=== PATIENT | female | born 1990 | race Caucasian/White ===

== ENCOUNTER 2020-02-21 12:43 | Inpatient (IN) | payer OTHER, SELFPAY ==
[2020-02-21] VITALS (22 sets, daily range): BP systolic 103–128; BP diastolic 49–71; PULSE 58–91; RESP 14–18; TEMP 36.1–36.9; O2SAT 99–100; BMI 35.3
[2020-02-21] MEDS: Lactated Ringers 1,000 ML 999 ML IV (09:35)
--- NOTE | 2020-02-21 09:38 | US_ITS ---
STUDY: SECOND AND THIRD TRIMESTER OBSTETRICAL ULTRASOUND - LIMITED REASON FOR EXAM: Female, 29 years old. Bleeding at 34 weeks. LMP: June 26, 2019. PRIOR ULTRASOUND: None. TECHNIQUE: Transabdominal TECHNICAL QUALITY: Adequate. FINDINGS: There is a single intrauterine fetus. The fetus is in a breech presentation. There is demonstrated cardiac activity with a heart rate of 158 bpm. There is a normal amniotic fluid volume. The largest amniotic fluid pocket measures 4. cm. The amniotic fluid index (ADRIEL) is 12.28 cm. The placenta is anterior with a complete previa. There are Grade 2 placental changes. The cervix measures 4.1 cm cm in length. Age by LMP: 34 weeks, 2 days. STEFAN by LMP: April 02, 2020. US/OB Limited (No Biometrics) IMPRESSION: 1. Limited study. 2. Breech presentation. 3. Anterior placental location with complete previa. Grade 2. 4. Live single intrauterine . Electronically Signed: Trace Llamas DO at 15:05 EDT Tel [phone], Service support ,
[2020-02-21 10:18] LABS: Absolute Lymphocyte Count 1.44 X10^3/uL (0.83-4.51); Absolute Neutrophil Count 6.6 X10^3/uL (2.0-7.7); Basophil# 0.02 X10^3/uL; Basophil% 0.2 % (0-1); Eosinophil# 0.08 X10^3/uL; Eosinophils% 0.9 % (0-5); Hematocrit 39.5 % (37-47); Hemoglobin 13.2 g/dL (12.0-15.0); Lymphocyte # 1.44 X10^3/ul (4.0); Lymphocyte % 16.5 % (19-41); Mean Corp Hgb Conc 33.4 g/dL (32-36); Mean Corpuscular Hgb 31.1 pg (27.0-32.0); Mean Corpuscular Volume 92.9 fL (81-99); Monocyte# 0.54 X10^3/uL; Monocyte% 6.2 % (0-10); NRBC Flagged by Analyzer 0 % (0-5); Neutrophil # 6.61 X10^3/uL (2.7-7.7); Neutrophil % 75.9 % (47-70); Platelet Count 213 K/mm3 (150-450); RBC Distribution Width CV 14.3 % (11.6-14.6); Red Blood Count 4.25 M/mm3 (4.2-5.4); White Blood Count 8.7 K/mm3 (4.4-11.0)
[2020-02-21 10:25] LABS: Amphetamine Urine VISTA NEGATIVE (<1000 ng/mL); Barbiturate Urine VISTA NEGATIVE (< 200 ng/mL); Benzodiazepine Urine VISTA NEGATIVE (< 200 ng/mL); Cocaine Urine VISTA NEGATIVE (< 300 ng/mL); Ecstacy Urine VISTA NEGATIVE (< 500 ng/mL); Methadone Urine VISTA NEGATIVE (< 300 ng/mL); PCP Urine VISTA NEGATIVE (< 25 ng/mL); THC Urine VISTA NEGATIVE (< 50 ng/mL); Vista UDS pH Range 7
[2020-02-21] MEDS: Lactated Ringers 1,000 ML 125 ML IV (10:50)
[2020-02-21 11:41] LABS: Fibrinogen 702 mg/dl (203-444)
[2020-02-21] MEDS: Sodium Citrate/Citric Acid 30 ML UDC PO (13:03)
--- NOTE | 2020-02-21 13:07 | HP.PCM_ITS ---
- Problem List (1) Complete placenta previa with hemorrhage, third trimester Status: Acute (2) Limited care Status: Acute (3) Grand multipara Status: Acute History Date of Admission: 02/21/20 Final STEFAN: 04/02/20 Gestational age: 34 Weeks and 1 Days History of this : This is a 29 year-old, G8, P5 at 34 weeks gestational age presents with acute vaginal bleeding. Patient has had 2 visits by a tdp displays analyst Mady in the community. She had a small bleeding episode last week but has had an otherwise uncomplicated . She has not had any testing or ultrasounds. Bleeding was enough to fill a pad in 2 hours with a small clot and then bleeding was stabilized but still estimated between 10 to 25 cc an hour. Ultrasound performed and complete placenta previa seen with cervical office open. Fetus is breech. measurements consistent with estimated gestational age. Allergies No Known Allergies Allergy (Verified 02/21/20 10:52) Home Medications: Home Medications Multi Tablet 02/21/20 Smoking Status: Never smoker Alcohol: None Number of Fetus(es): 1 NST - FHR Rate Baby A Baseline: 140 Variability:: Moderate Accelerations:: 15 x 15 Decelerations:: None NST Reactive:: Yes FHR Category:: Category I Uterine Activity:: no regular History Past Pregnancies: Past Pregnancies 2 previous miscarriages and 5 previous term vaginal deliveries at home and at the birthing centers. No known complications smallest baby 611 largest 8 pounds. Labs: Mom's Labs & Results 02/21/20 02/21/20 02/21/20 09:35 09:35 09:35 WBC 8.7 RBC 4.25 Hgb 13.2 Hct 39.5 MCV 92.9 MCH 31.1 MCHC 33.4 RDW Std Deviation 48.0 H RDW Coeff of Jose De Jesus 14.3 Plt Count 213 MPV 11.0 Immature Gran % (Auto) 0.300 Neut % (Auto) 75.9 H Lymph % (Auto) 16.5 L [place] % (Auto) 6.2 Eos % (Auto) 0.9 Baso % (Auto) 0.2 Absolute Neuts (auto) 6.6 Absolute Lymphs (auto) 1.44 Nucleated RBC % 0 Fibrinogen Urine Opiates Screen Urine Methadone Screen Ur Barbiturates Screen Ur Phencyclidine Scrn Ur Amphetamines Screen U Methamphetamin-MDMA U Benzodiazepines Scrn Urine Cocaine Screen U Cannabinoids Screen Ur Drug Screen Comment RPR Pending Hep Bs Antigen Hepatitis C Antibody HIV 1&2 Antibody Rubella IgG Antibody Pending Blood Type Antibody Screen Crossmatch 02/21/20 02/21/20 02/21/20 09:35 09:35 09:35 WBC RBC Hgb Hct MCV MCH MCHC RDW Std Deviation RDW Coeff of Jose De Jesus Plt Count MPV Immature Gran % (Auto) Neut % (Auto) Lymph % (Auto) Vermillion % (Auto) Eos % (Auto) Baso % (Auto) Absolute Neuts (auto) Absolute Lymphs (auto) Nucleated RBC % Fibrinogen Urine Opiates Screen NEGATIVE Urine Methadone Screen NEGATIVE Ur Barbiturates Screen NEGATIVE Ur Phencyclidine Scrn NEGATIVE Ur Amphetamines Screen NEGATIVE U Methamphetamin-MDMA NEGATIVE U Benzodiazepines Scrn NEGATIVE Urine Cocaine Screen NEGATIVE U Cannabinoids Screen NEGATIVE Ur Drug Screen Comment RPR Hep Bs Antigen Pending Hepatitis C Antibody Pending HIV 1&2 Antibody Pending Rubella IgG Antibody Blood Type O POSITIVE Antibody Screen NEGATIVE Crossmatch 02/21/20 02/21/20 02/21/20 09:35 09:35 10:55 WBC RBC Hgb Hct MCV MCH MCHC RDW Std Deviation RDW Coeff of Jose De Jesus Plt Count MPV Immature Gran % (Auto) Neut % (Auto) Lymph % (Auto) Vermillion % (Auto) Eos % (Auto) Baso % (Auto) Absolute Neuts (auto) Absolute Lymphs (auto) Nucleated RBC % Fibrinogen Cancelled 702 H Urine Opiates Screen Urine Methadone Screen Ur Barbiturates Screen Ur Phencyclidine Scrn Ur Amphetamines Screen U Methamphetamin-MDMA U Benzodiazepines Scrn Urine Cocaine Screen U Cannabinoids Screen Ur Drug Screen Comment RPR Hep Bs Antigen Hepatitis C Antibody HIV 1&2 Antibody Rubella IgG Antibody Blood Type Antibody Screen Crossmatch See Detail Course Did the patient receive No care? Labs Blood Type: O RH: POSITIVE Group B Strep: Not Done Past Medical History Asthma No Diabetes No Hypertension No Heart disease No Mitral valve prolapse No Neurologic/Seizure disorder/ No Migraines Kidney disease No Liver disease No Varicosities No Clotting disorders/Hx of DVT No Thyroid Dysfunction Yes Other medical diseases No Psychiatric disorders No Major trauma No Abnormal PAP smear No Sleep apnea No Mammogram in the last 2 years No Social History Marital Status: Alleged father kavon Sun Smoking No Smoking Status Never smoker Expected Infant Delivery Method: HAI Section Review of Systems Constitutional: Denies: Fever, Malaise Eyes: Denies: Blurred vision, Vision Change HEENT: Denies: Head Aches, Visual Changes Cardiovascular: Denies: Chest Pain, Palpitations Respiratory: Denies: Cough, Shortness of Breath, Wheezing Gastrointestinal: Denies: Abdominal Pain, Diarrhea, Nausea, Vomiting Genitourinary: Denies: Dysuria, Hematuria Gynecological: Reports: Vaginal bleeding Musculoskeletal: Denies: Joint Pain, Muscle pain Skin: Denies: Lesions, Rash Neurological: Denies: Blurred vision, Focal weakness, Headaches Psychiatric: Denies: Anxiety, Depression Endocrine: Denies: Heat/ Cold Intolerance Hematologic/ Lymphatic: Denies: Easy Bruising, Easy Bleeding Physical Exam Vitals: Vital Signs Temp Pulse BP Pulse Ox 98.4 F 80 119/71 100 02/21/20 10:37 02/21/20 12:49 02/21/20 12:49 02/21/20 10:37 General: Alert, Cooperative, No apparent distress HEENT: Atraumatic, Normocephalic. Negative for: Thyromegaly, Lymphadenopathy Cardiovascular: Regular rate Lungs: Normal air movement Abdomen: Soft, Non Tender, Gravid Neurological: Deep Tendon Reflexes 2+/4 and Symmetrical, Neuro grossly intact. Negative for: Clonus JACQUARD LOOM HEDDLES TIER: Normal external genitalia. Negative for: Vulvar lesions Estimated gestational size: Appropriate for gestational size - 10 cc present of blood on the pad with some perivaginal staining and on the inner thighs. No acute bleeding present. Presentation: Breech Assessment/Plan All Active Problems Complete placenta previa with hemorrhage, third trimester (Acute) Limited care (Acute) Grand multipara (Acute) This is a 29 year-old, G 8P5, at 34 weeks gestational age presents with acute vaginal bleeding with complete placenta previa and open cervical os Decision to proceed with immediate primary delivery. heart tones stable and maternal vital signs stable and hemoglobin 13. Type and cross 2 units due to bleeding risk with previa. Counseled regarding risk and benefits of surgery and patient agrees to proceed with surgery.
--- NOTE | 2020-02-21 13:13 | OP.PCM_ITS ---
Problem List (1) Complete placenta previa with hemorrhage, third trimester Status: Acute (2) Limited care Status: Acute (3) Grand multipara Status: Acute Delivery Classification: HAI Final STEFAN: 04/02/20 Gestational age: 34 Weeks and 1 Days loom starter: Gema Stewart Type of Anesthesia:: Spinal Special Medications: none Implants Used: none Date of Procedure: 02/21/20 Pre-Operative Diagnosis: previa with bleeding, open cervical os Post-Operative Diagnosis: complete previa with 10% abruption noted Indications for : Breech Description of Procedure: Spinal anesthesia was placed without difficulty. Mccallum catheter was placed. The patient was placed in the dorsal supine position with leftward tilt. Patient was prepped and draped in the normal sterile fashion. Pfannenstiel skin incision was made with the scalpel and carried through to the underlying layer of fascia with the scalpel. Fascia was nicked in the midline and the incision extended laterally. The rectus bellies were dissected off superiorly and inferiorly with out complication both sharply and bluntly. The peritoneum was entered digitally. The incision was stretched and a low transverse uterine incision was made with the scalpel. The 's head was delivered atraumatically followed by the anterior and posterior shoulders without complication the rest of the infant delivered. The cord was clamped and cut and the infant was handed off to awaiting nurse. The placenta was delivered spontaneously immediately following and was noted to be intact and have a three- vessel cord. 10% abruption seen. The uterus was exteriorized cleared of all clots and debris, and the incision was closed in a double layer closure using #1 Monocryl. The ovaries and fallopian tubes were noted to be within normal limits. The uterus was returned to the maternal abdomen and gutters were cleared of all clots and debris. The peritoneum was closed with 3-0 Monocryl in a running fashion. Gloves were changed prior to fascial closure. Fascia was closed with 0 PDS in a running fashion. Subcutaneous tissue was copiously irrigated and the skin was closed with 3-0 Monocryl in a subcuticular fashion. Mepilex dressing was applied without complication. Patient was taken to recovery in stable condition. It was discussed with the patient that based on the clinical information obtained during this encounter, combined with her history, at this time I would recommend vaginal or cesareans for future deliveries if further pregnancies are desired. Amniotic Membrane Rupture Type: Artificial Amniotic Fluid Description: Clear Placenta Disposition: [facility] Cord Entanglement: None Cord Vessel Description: 3 Vessels Esitmated Blood Loss (ml): 600 Infant Gender: Female Delayed cord clamping: Yes Antibiotic Given: Ancef 2 grams IV x1 Pt instructed on risks of surgery: Bleeding, Anesthesia Risks, Infection, Injury to surrounding structure(s) including bowel and bladder Complications: None - Admit VTE Documentation VTE Present on Admission: No Multi Select Codes - Urinary/Genital Urinary/Genital CPT Codes: 55689 delivery only
[2020-02-21] MEDS: Cefazolin 2 GM in 0.9% Normal Saline 100 ML IV (13:20)
[2020-02-21] MEDS: Oxytocin 30 units/NS 500 ml 30 UNITS/500 ML IV.SOLN 167 UNITS IV (14:44)
[2020-02-21] MEDS: Lactated Ringers 1,000 ML 100 ML IV (17:58)
[2020-02-21] MEDS: Ketorolac 30 MG/ML Syringe IV ×2 (18:40→23:48)
[2020-02-21 18:51] LABS: HIV - WCH Non-Reactive (Nonreactive); Hepatitis B Surface Antigen Non-Reactive (Nonreactive); Hepatitis C Antibody Non-Reactive (Nonreactive)
--- NOTE | 2020-02-21 21:25 | DCINST_ITS ---
Discharge Diet: No Restrictions Discharge Activity: May Not Drive - for 2 weeks, May not drive while taking narcotic pain medications., May Shower, May Take a Tub Bath - in 7 days May resume sexual activity in: 4-6 weeks Lifting Restrictions: 20 pounds Additional Activity Instructions:: Nothing in the vagina for 4-6 weeks. You may return to work/school in 6 weeks. Call your doctor if your incision/area has: Continuous Slow Oozing, Sudden Increased Bleeding, Increased Pain/ Swelling, Increased Redness, Foul Smelling Discharge Call your doctor if you observe: Fever of 101 or Higher, Using more than one pad per hour - for 2 hours Suture Line Care: Avoid Pulling/Pushing, Avoid Pinching/Bending Cleanse incision/area with: Keep Dressing Clean & Dry Additional Instructions: If you experience any of the following, contact your healthcare provider. * Bleeding that soaks a pad every hour for 2 hours * Fever 100.4 or higher * Unrelieved incision or abdominal pain * Swelling, redness, discharge or bleeding from your incision or episiotomy site * Your incision begins to separate * Problems urinating (including inability to urinate or burning while urinating). * Visual changes * Severe headache * Flu-like symptoms * Pain or redness in one of both of your breasts * Pain, warmth, tenderness or swelling in your legs, especially the calf area * Frequent nausea and vomiting * Symptoms of depression or anxiety If you experience any of the following, call 911 or go to the nearest Emergency Room. * Chest pain * Problems breathing * Seizure activity * Partial or complete paralysis of a body part, slurred speech, weakness or drooping of the face, or a sudden inability to walk or hold your balance Allergies/Adverse Reactions: Allergies No Known Allergies Allergy (Verified 02/21/20 10:52) Medications to take at Discharge Multi Tablet 02/21/20 Follow-Up: Call to make an appointment with your doctor for an incision check in 1-2 weeks. You will also need a 6 week post- follow up appointment. Test results from this visit will be discussed in further detail at your follow- up appointment, if applicable. Please Follow Up With: Meg Clark MD - Call to make an appointment for an incision check in 1-2 [phone] When: You will need a post- check in 6 weeks.
[2020-02-21] MEDS: 0.9% Saline Lock 10 ML Syringe IV (23:48)
[2020-02-22 00:52] VITALS: PULSE 89; RESP 16; O2SAT 99
[2020-02-22 01:52] VITALS: BP 96/48; PULSE 70; RESP 14; TEMP 36.4; O2SAT 98
[2020-02-22] MEDS: Enoxaparin 40 MG/0.4 ML Syringe SC (02:03)
[2020-02-22 06:14] VITALS: BP 94/54; PULSE 70; RESP 16; TEMP 36.4; O2SAT 100
[2020-02-22] MEDS: Ketorolac 30 MG/ML Syringe IV ×2 (06:21→11:46)
[2020-02-22] MEDS: 0.9% Saline Lock 10 ML Syringe IV ×2 (06:21→11:46)
[2020-02-22 06:31] LABS: Hematocrit 33.4 % (37-47); Hemoglobin 11.3 g/dL (12.0-15.0); Mean Corp Hgb Conc 33.8 g/dL (32-36); Mean Corpuscular Hgb 31.7 pg (27.0-32.0); Mean Corpuscular Volume 93.6 fL (81-99); Mean Platelet Vol. 10.8 fl (6.2-12.0); Platelet Count 167 K/mm3 (150-450); RBC Distribution Width CV 14.4 % (11.6-14.6); RBC Distribution Width SD 49.1 fl (35.1-43.9); Red Blood Count 3.57 M/mm3 (4.2-5.4); White Blood Count 10.3 K/mm3 (4.4-11.0)
--- NOTE | 2020-02-22 06:54 | NURSING ---
RN in room for morning blood draw. This RN asked PHQ assessment questions which patient answered affirmatively. Said she sometimes had a headache and didn't feel like doing things and felt sad. patient began to cry, but wouldn't answer questions about why. FOLuis Fernando states, she does this at home sometimes too. Put in consult for social work. This RN believes patient would be better answering further questions when FOB is out of the room.
[2020-02-22 07:26] VITALS: BP 104/54; PULSE 79; RESP 16; TEMP 36.7; O2SAT 100
--- NOTE | 2020-02-22 08:25 | PN.OBGYN_ITS ---
Patient Problems: Active and Suspected Problems Complete placenta previa with hemorrhage, third trimester (Acute) Limited care (Acute) Grand multipara (Acute) Subjective: No complaints.Pain controlled. Denies CP, SOB, N,V. Tearful-does not answer questions directly. Does state that she is upset about baby in [place]. Ambulating well, tolerating po. Lochia moderate, pumping - Physical Exam Vitals/I&O's: Vital Signs Temp Pulse Resp BP Pulse Ox 98.1 F 79 16 104/54 L 100 02/22/20 07:26 02/22/20 07:26 02/22/20 07:26 02/22/20 07:26 02/22/20 07:26 Oxygen Delivery Method Room Air Weight: 199 lb 8 oz Body Mass Index (BMI) 35.3 Intake and Output for Last 24 Hours 02/20/20 02/21/20 02/22/20 23:59 23:59 23:59 Intake Total 2580.84 / 2580.84 Output Total 2500 / 2500 Balance 80.84 / 80.84 General: Alert, Oriented x3 Abdomen: Soft, Non-Distended, - - FF below U. Dressing dry and intact Microbiology Past 72 Hours 02/21/20 15:00 Mucosa - Nasopharyngeal Coronavirus COVID-19 PCR - Final Laboratory Results 02/21/20 09:35: WBC 8.7, RBC 4.25, Hgb 13.2, Hct 39.5, MCV 92.9, MCH 31.1, MCHC 33.4, RDW Std Deviation 48.0 H, RDW Coeff of Jose De Jesus 14.3, Plt Count 213, MPV 11.0, Immature Gran % (Auto) 0.300, Neut % (Auto) 75.9 H, Lymph % (Auto) 16.5 L, Warren % (Auto) 6.2, Eos % (Auto) 0.9, Baso % (Auto) 0.2, Absolute Neuts (auto) 6.6, Absolute Lymphs (auto) 1.44, Nucleated RBC % 0 02/21/20 09:35: Rubella IgG Antibody Pending 02/21/20 09:35: RPR Pending 02/21/20 09:35: Blood Type O POSITIVE, Antibody Screen NEGATIVE 02/21/20 09:35: Urine Opiates Screen NEGATIVE, Urine Methadone Screen NEGATIVE, Ur Barbiturates Screen NEGATIVE, Ur Phencyclidine Scrn NEGATIVE, Ur Amphetamines Screen NEGATIVE, U Methamphetamin-MDMA NEGATIVE, U Benzodiazepines Scrn NEGATIVE, Urine Cocaine Screen NEGATIVE, U Cannabinoids Screen NEGATIVE, Ur Drug Screen Comment 02/21/20 09:35: Hep Bs Antigen Non-Reactive, Hepatitis C Antibody Non-Reactive, HIV 1&2 Antibody Non-Reactive 02/21/20 09:35: Fibrinogen Cancelled 02/21/20 09:35: Crossmatch See Detail 02/21/20 09:35: Hepatitis C Antibody Cancelled 02/21/20 10:55: Fibrinogen 702 H 02/22/20 06:20: WBC 10.3, RBC 3.57 L, Hgb 11.3 L, Hct 33.4 L, MCV 93.6, MCH 31.7, MCHC 33.8, RDW Std Deviation 49.1 H, RDW Coeff of Jose De Jesus 14.4, Plt Count 167, MPV 10.8 Current Medications Acetaminophen (Tylenol) 1,000 mg PO Q8H PRN PRN Reason: Pain Score 1-3/10 Bisacodyl (Dulcolax) 10 mg RECTAL UD PRN PRN Reason: If no BM Enoxaparin Sodium (Lovenox) 40 mg SC DAILY@0200 [facility] Last Admin: 02/22/20 02:03 Dose: 40 mg Documented by: Hydrocortisone (Hytone) 1 applic TOPICAL TID PRN PRN; Protocol PRN Reason: Discomfort Lactated Ringer's () 1,000 mls @ 100 mls/hr IV .Q10H [facility] Last Admin: 02/22/20 00:15 Dose: Not Given Documented by: Naloxone HCl 4 mg/ Dextrose 504 mls @ 0 mls/hr IV .Q0M PRN; Protocol PRN Reason: Respiratory depression Naloxone HCl 4 mg/ Dextrose 504 mls @ 0 mls/hr IV .Q0M PRN; Protocol PRN Reason: To maintain Resp. rate >10 Ibuprofen (Motrin) 600 mg PO Q6H PRN PRN PRN Reason: Pain Score 1-3/10 Ketorolac Tromethamine (Toradol (Bkc)) 30 mg IV Q6 [facility] Stop: 02/23/20 12:01 Last Admin: 06/01/20 06:21 Dose: 30 mg Documented by: Methylergonovine Maleate (Methergine) 0.2 mg IM X1 PRN PRN Reason: Uterine Atony Naloxone HCl (Narcan) 0.02 mg IV Q1M PRN PRN Reason: RR <10 and pt unresponsive Ondansetron HCl (Zofran) 4 mg IV Q4H PRN PRN PRN Reason: Nausea Oxycodone HCl (Oxyir) 5 - 10 mg PO Q4H PRN PRN PRN Reason: Pain Score 4-10/10 Prochlorperazine Edisylate (Compazine Iv) 10 mg IV Q6H PRN PRN PRN Reason: NAUSEA Senna/Docusate Sodium (Senokot-S, Minerva-Colace) 0 tablet PO DAILY PRN PRN Reason: Constipation Simethicone (Mylicon) 80 mg PO PCHS PRN PRN Reason: Indigestion/stomach pain Sodium Chloride () 5 - 15 ml IV UD PRN PRN Reason: SALINE FLUSH Last Admin: 02/22/20 06:21 Dose: 10 ml Documented by: Medical Necessity - Tobacco Use Smoking Status: Never smoker Assessment/Plan All Active Problems Complete placenta previa with hemorrhage, third trimester (Acute) Limited care (Acute) Grand multipara (Acute) s/p LTCS PPD # 1 1. routine post care 2. pumping- support given 3. rh positive 4. rubella immune 5. social work assistant consult aware. plans to leave later today, enc nurse to talk with patient without spouse in room.
[2020-02-22 11:10] LABS: Rubella IgG 395.1 IU/mL
[2020-02-22 14:30] VITALS: BP 107/62; PULSE 82; RESP 16; TEMP 36.9; O2SAT 97
[2020-02-22] MEDS: Acetaminophen 500 MG Tablet 1000 MG PO (15:59)
[2020-02-25 00:55] LABS: Rapid Plasmin Reagin (RPR) NONREACTIVE (NONREACTIVE)
== END 2020-02-22 17:55 | disposition home or self-care (01) | DRG 786 ==
LOC: WPOUT 12:44 → WP 12:44
PROVIDERS: Admitting Provider Obstetrics & Gynecology; Visit Provider Obstetrics & Gynecology
DX: O60.14X0 Preterm labor third trimester with preterm delivery third trimester, not applicable or unspecified (principal); O44.13 Complete placenta previa with hemorrhage, third trimester; O45.93 Premature separation of placenta, unspecified, third trimester; O32.1XX0 Maternal care for breech presentation, not applicable or unspecified; Z3A.34 34 weeks gestation of pregnancy; Z37.0 Single live birth
CPT/HCPCS: 59025; 59050; 76815; 80307; 85025; 85027; 85384; 86592; 86703; 86762; 86803; 86850; 86900; 86901; 86920; 86922; 87340; 87635; 99218; G2023; J7120; A4216; G0378; J2405; U0004